=== PATIENT | female | born 1955 | race Caucasian/White ===

== ENCOUNTER 2019-05-29 09:12 | Day surgery (SDC) | payer OTHER ==
[~2019-05-29] VITALS: Ht 167.6 cm; Wt 113.8 kg
[~2019-05-29 09:12] MED LIST: ALPR1 PO; CETI5 PO; FLUO10 PO; MEDR5 PO; TESTOSTERONE TOP; TRIHYD253A PO
--- NOTE | 2019-05-29 09:40 | NUR ---
History, Chart, Medications and Allergies reviewed before start of procedure. Lungs clear T/O to Auscultation. Patient confirms NPO status and agrees with scheduled surgery. Pre-Op teaching done. Pt verbalizes understanding. Patient reports completing Chlorhexadine shower X2 prior to admission to hospital.
--- NOTE | 2019-05-29 10:09 | NUR ---
PT AMB TO BATHROOM AND BACK WITHOUT DIFFCULTY.
--- NOTE | 2019-05-29 18:52 | NUR ---
SUMMARY DENIES ANY PAIN AFTER MEDICATED WITH DILAUDID, OOB TO AMBULATE TODAY W/ PH. TX, TOLERATED WELL,CURRENTLY ON RECLINER, STATES SHE IS COMFORTABLE,DSG C/D/I, POLAR PACK IN PLACE, VSS, NO ACUTE CHANGES THIS SHIFT.
[2019-05-30 05:02] LABS: BASOPHILS ABSOLUTE AUTO 0.05 K/mm3 (0.00-0.23); BASOPHILS PERCENT AUTO 1 % (0-2); EOSINOPHILS ABSOLUTE AUTO 0.21 K/mm3 (0.00-0.68); EOSINOPHILS PERCENT AUTO 2 % (0-6); Hematocrit 40.4 % (33.0-51.0); IMMATURE GRAN ABSOLUTE AUTO 0.07 K/mm3 (0.00-0.10); IMMATURE GRAN PERCENT AUTO 1 % (0-1); LYMPHOCYTES ABSOLUTE AUTO 1.13 K/mm3 (0.84-5.20); LYMPHOCYTES PERCENT AUTO 10 % (21-46); MONOCYTES ABSOLUTE AUTO 1.57 K/mm3 (0.16-1.47); MONOCYTES PERCENT AUTO 14 % (4-13); Mean Corpuscular HGB 29.2 pg (26.0-34.0); Mean Corpuscular HGB Conc 32.2 g/dL (31.5-36.5); Mean Corpuscular Volume 91 fL (80-100); Mean Platelet Volume 9.9 fL (9.1-12.4); NEUTROPHILS ABSOLUTE AUTO 8.04 K/mm3 (1.96-9.15); NEUTROPHILS PERCENT AUTO 73 % (41-73); Platelet Count 240 K/mm3 (150-400); RDW Coefficient Variation 12.7 % (11.7-14.2); Red Blood Cell Count 4.45 M/mm3 (3.80-5.20); White Blood Cell Count 11.07 K/mm3 (4.00-11.30)
[2019-05-30 05:22] LABS: Anion Gap 7 mmol/L (6-16); Blood Urea Nitrogen 26 mg/dL (8-24); Bun/Creatinine Ratio 33.4 (12.0-20.0); CO2, Blood 29 mmol/L (21-32); Calcium, Blood 8.4 mg/dL (8.5-10.1); Chloride, Blood 101 mmol/L (98-108); Creatinine, Blood 0.78 mg/dL (0.40-1.00); Glomerular Filtration Rate >60 (60-); Glucose, Blood 100 mg/dL (70-99); Magnesium, Blood 1.7 mg/dL (1.6-2.4); Sodium, Blood 137 mmol/L (136-145)
--- NOTE | 2019-05-30 05:52 | NUR ---
SUMMARY POD #1 L TKA PT DID WELL THROUGH THE NIGHT. SHE IS TOLERATING PO INTAKE. AMBULATING TO THE BATHROOM 1 ASSIST USING FWW, GAIT BELT AND 1 ASSIST WITH NO PROBLEMS. PAIN MANAGED WITH SCHEDULED TYLENOL/TORADOL AND 2 OXYCODONE PER EMAR. DRSG REMAINS C/D/I, CIRC WNL, POLAR PACK/SCD'S IN PLACE. FAMILY FRIEND IS AT THE BEDSIDE. PT HAS NOT SLEPT WELL BUT REMAINS IN GOOD SPIRITS. WCTM, CALL LIGHT IN REACH.
[2019-05-30] MEDS ORDERED: ENOX40I INJ (09:33)
[2019-05-30] MEDS ORDERED: PROM25 PO (09:34)
[2019-05-30] MEDS ORDERED: OXYC5 PO (09:34)
--- NOTE | 2019-05-30 13:20 | NUR ---
05/30/19 1320 Annette Duran VERIFICATIONS: EDIT IMPLANTS.
--- NOTE | 2019-05-30 13:31 | NUR ---
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 PT REP HAVING ALL SCRIPTS FILLED PREVIOUSLY: 2 ABX, LOVENOX, OXY; FAXED PHENERGAN TO [facility]. DISCHARGE INSTRUCTIONS PROVIDED. PT REP UNDERSTANDING THOSE INSTRUCTIONS INCLUDING AQUACEL DRESSING CHANGES SUN/WED UNTIL FU WITH SURGEON IN 2 WKS, OK TO SHOWER, NO TUB BATH/JACUZZI/RIVER, NO DRIVING UNTIL RELEASED BY SURGEON, WHEN TO CALL SURGEON, HOW TO GIVE LOVENOX TO HERSELF/OR FAMILY MEMBER PROVIDE. IV DC'D.
== END 2019-05-30 13:18 | disposition home or self-care (01) ==
LOC: ORSCMMR 09:12 → ORD 10:30 → SURS 14:19 → ORSCMMR 05-30 13:18
PROVIDERS: Orthopaedic Surgery
PROC: 8E0YXBZ Computer Assisted Procedure of Lower Extremity (ICD-10-PCS; principal; 2019-05-29 10:30)
PROC: 0SRD0J9 Replacement of Left Knee Joint with Synthetic Substitute, Cemented, Open Approach (ICD-10-PCS; principal; 2019-05-29 10:30)
DX: M17.12 Unilateral primary osteoarthritis, left knee (principal); E66.01 Morbid (severe) obesity due to excess calories; Z68.41 Body mass index [BMI] 40.0-44.9, adult; E03.9 Hypothyroidism, unspecified; F32.9 Major depressive disorder, single episode, unspecified; Z79.899 Other long term (current) drug therapy
CPT/HCPCS: 36415; 73560-LT; 80048; 83735; 85025; 88300; 97110; 97116; 97162; 97530; C1713; C1776; J0171; J0690; J0735; J1170; J1650; J1885; J2250; J2405; J2704; J2795; J3010; J7120

== ENCOUNTER 2019-06-11 14:25 | Inpatient (IN) | payer OTHER ==
[~2019-06-11] VITALS: Ht 167.6 cm; Wt 121.6 kg
[~2019-06-11 14:25] MED LIST changes: +ENOX40I INJ; +OXYC5 PO; +PROM25 PO
[2019-06-11 14:45] LABS: Calcium, Ionized (POC) 1.09 mmol/L (1.10-1.46); Chloride (POC) 103 mmol/L (98-108); Creatinine (POC) 0.6 mg/dL (0.6-1.0); Glucose (ISTAT POC) 123 mg/dL (70-99); Hemoglobin (POC) 7.8 g/dL (12.0-16.0); Potassium (POC) 3.9 mmol/L (3.5-5.5); Sodium (POC) 137 mmol/L (135-148); Total CO2 (POC) 24 mmol/L (21-32)
[2019-06-11 14:59] LABS: BASOPHILS ABSOLUTE AUTO 0.09 K/mm3 (0.00-0.23); BASOPHILS PERCENT AUTO 1 % (0-2); EOSINOPHILS ABSOLUTE AUTO 0.29 K/mm3 (0.00-0.68); EOSINOPHILS PERCENT AUTO 2 % (0-6); Hematocrit 26.6 % (33.0-51.0); Hemoglobin 8.5 g/dL (11.5-16.0); IMMATURE GRAN ABSOLUTE AUTO 0.43 K/mm3 (0.00-0.10); IMMATURE GRAN PERCENT AUTO 3 % (0-1); LYMPHOCYTES ABSOLUTE AUTO 1.78 K/mm3 (0.84-5.20); LYMPHOCYTES PERCENT AUTO 13 % (21-46); MONOCYTES ABSOLUTE AUTO 0.88 K/mm3 (0.16-1.47); MONOCYTES PERCENT AUTO 6 % (4-13); Mean Corpuscular HGB 30.2 pg (26.0-34.0); Mean Platelet Volume 9.4 fL (9.1-12.4); NEUTROPHILS ABSOLUTE AUTO 10.27 K/mm3 (1.96-9.15); NEUTROPHILS PERCENT AUTO 75 % (41-73); NRBC ABSOLUTE 0.02 K/mm3 (0.00-0.02); NRBC Auto 0.1 /100 WBC (0.0-0.2); Platelet Count 406 K/mm3 (150-400); RDW Coefficient Variation 13.4 % (11.7-14.2); RDW Standard Deviation 46.3 fL (35.1-46.3); Red Blood Cell Count 2.81 M/mm3 (3.80-5.20); White Blood Cell Count 13.74 K/mm3 (4.00-11.30)
[2019-06-11 15:10] LABS: Mean Corpuscular Volume 95 fL (80-100)
[2019-06-11 15:26] LABS: Alanine Aminotransfer (ALT/SGP 15 U/L (12-78); Albumin, Blood 2.5 g/dL (3.4-5.0); Albumin/Globulin Ratio 0.9 (0.8-1.8); Alk Phos 64 U/L (50-136); Anion Gap 8 mmol/L (6-16); Aspartate Aminotrans (AST/SGOT 14 U/L (12-37); Bilirubin, Total 0.2 mg/dL (0.1-1.0); Blood Urea Nitrogen 39 mg/dL (8-24); Bun/Creatinine Ratio 86.9 (12.0-20.0); CO2, Blood 24 mmol/L (21-32); Calcium, Blood 8.1 mg/dL (8.5-10.1); Chloride, Blood 109 mmol/L (98-108); Creatinine, Blood 0.45 mg/dL (0.40-1.00); Globulin, Blood 2.8 g/dL (2.2-4.0); Glomerular Filtration Rate >60 (60-); Glucose, Blood 123 mg/dL (70-99); Sodium, Blood 141 mmol/L (136-145); Total Protein, Blood 5.3 g/dL (6.4-8.2)
[2019-06-11] MEDS ORDERED: Estradiol1 MG PO (17:08)
[2019-06-11] MEDS ORDERED: GABA300 PO (17:08)
[2019-06-11] MEDS ORDERED: PROG100 PO (17:09)
[2019-06-11] MEDS ORDERED: OMEPRAZOLE MAGN20 MG PO (17:09)
[2019-06-11] MEDS ORDERED: MONT10T PO (17:09)
[2019-06-11] MEDS ORDERED: LEVSOD50 PO (17:09)
[2019-06-11] MEDS ORDERED: Dyazide 37.5-21 EACH PO (17:10)
[2019-06-11] MEDS ORDERED: Hydrocodone-Ap1 EA23 PO (17:12)
[2019-06-11 17:19] LABS: International Normalized Ratio 0.97; Prothrombin Time Results 10.3 Sec (9.7-11.5)
[2019-06-11] MEDS ORDERED: Prozac40 MG PO (18:00)
--- NOTE | 2019-06-11 19:00 | NUR ---
ADMIT/ASSUMED CARE PT WAS ADMITTED TO PCU 7 APPROXIMATELY 1855 BY DAY SHIFT RN. ASSUMED CARE OF PATIENT AT THIS TIME. PT IS AWAKE AND ALERT. ORIENTED X 3 AND CALM AND COOPERATIVE. REPOSITIONS SELF IN BED. DENIES C/O PAIN OR DISCOMFORT AT THIS TIME. RIGHT KNEE DRSG D/I. TELEMETRY SHOWS NSR. RA. RESPIRATIONS EVEN AND UNLABORED. PROTONIX INFUSING @ 8MG/HR (10CC/HR) PER ORDER. SEE ADMIT ASSESSMENT FOR FULL ASSESSMENT.
[2019-06-11 19:25] LABS: Hematocrit 25.7 % (33.0-51.0); Hemoglobin 8.2 g/dL (11.5-16.0)
--- NOTE | 2019-06-11 21:00 | NUR ---
BOWEL MOVEMENT UP TO BSC WITH TWO PERSON ASSIST. PT C/O DIZZINESS WHEN FIRST GETTING UP. GAIT IS WEAK, BUT STEADY. PASSED SMALL AMOUNT OF LOOSE DARK MAROON STOOL. ALSO URINATED.
[2019-06-11 23:36] LABS: Hematocrit 23.3 % (33.0-51.0); Hemoglobin 7.3 g/dL (11.5-16.0)
[2019-06-12 05:34] LABS: Hematocrit 22.8 % (33.0-51.0); Hemoglobin 7.2 g/dL (11.5-16.0); Mean Corpuscular HGB 29.4 pg (26.0-34.0); Mean Corpuscular HGB Conc 31.6 g/dL (31.5-36.5); Mean Corpuscular Volume 93 fL (80-100); Mean Platelet Volume 9.1 fL (9.1-12.4); NRBC ABSOLUTE 0.03 K/mm3 (0.00-0.02); NRBC Auto 0.2 /100 WBC (0.0-0.2); Platelet Count 336 K/mm3 (150-400); RDW Coefficient Variation 13.8 % (11.7-14.2); RDW Standard Deviation 46.1 fL (35.1-46.3); Red Blood Cell Count 2.45 M/mm3 (3.80-5.20); White Blood Cell Count 13.56 K/mm3 (4.00-11.30)
[2019-06-12 05:51] LABS: Anion Gap 7 mmol/L (6-16); Blood Urea Nitrogen 25 mg/dL (8-24); Bun/Creatinine Ratio 50.6 (12.0-20.0); CO2, Blood 26 mmol/L (21-32); Calcium, Blood 7.6 mg/dL (8.5-10.1); Chloride, Blood 111 mmol/L (98-108); Creatinine, Blood 0.49 mg/dL (0.40-1.00); Glomerular Filtration Rate >60 (60-); Glucose, Blood 88 mg/dL (70-99); Potassium, Blood 3.6 mmol/L (3.5-5.5); Sodium, Blood 144 mmol/L (136-145)
--- NOTE | 2019-06-12 06:24 | NUR ---
SHIFT SUMMARY NO ACUTE CHANGES. SLEPT WHEN UNDISTURBED. ROUSES EASILY TO STIMULI. MEDICATED WITH HYDROCODONE PO X 1 FOR C/O 3/10 LEFT KNEE PAIN WITH GOOD RELIEF. ALSO MEDICATED WITH TYLENOL 650MG PO X 1 FOR C/O 2/10 HEADACHE. DENIES NAUSEA. PASSED ONE LOOSE DARK MAROON STOOL AT BEGINNING OF SHIFT. NO FURTHER STOOL. VSS. RESPIRATIONS EVEN AND UNLABORED. PROTONIX GTT CONTINUES PER ORDER. NS INFUSING @ 150CC/HR PER ORDER. TENTATIVE PLAN FOR UPPER ENDOSCOPY PER DR. YUEN TODAY AT NOON. WILL REPORT TO DAY SHIFT RN WHEN AVAILABLE.
--- NOTE | 2019-06-12 08:19 | NUR ---
NURSING PCU DAYSHIFT: Assumed care of pt at approx 0700. A/O, pleasant, cooperative w/care. C/O 3-01/30 pain in L knee r/t recent sx, treating w/meds as ordered and repositioning, dressing in place which is CKI, mild swelling noted surrounding surgery site. Mild general weakness noted though able to ambulate w/SBA. Tele in place, NSR, no c/o CP/pressure, SBP 130's. L/S cta t/o, O2 sat 99% on RA, denies dyspnea, no noted cough. Abd SNT, BT+, voiding w/o difficuty per pt. PIV x1, LR infusing at 150cc/hr, protonix gtt at 10cc/hr. No s/s of acute distress at this time. New d/o received, pt to received 1 unit PRBC's, plan for EGD at approx 1200. Pt denies any current needs or questions regarding plan of care. Call light in reach, cont to monitor for any changes.
[2019-06-12 12:02] LABS: Hematocrit 26.2 % (33.0-51.0); Hemoglobin 8.1 g/dL (11.5-16.0)
--- NOTE | 2019-06-12 12:21 | NUR ---
INTO [facility] VIA [facility]. PT 2 WEEKS POST TOTAL KNEE REPLACEMENT ON LEFT.DRESSING C/D/I TO LEFT KNEE. PT REPORTS 3/10 LEFT KNEE PAIN. TRANSFERED TO [facility] USING WALKER AND STANDBY ASSIST.PT APPEARS PALE-DENIES NAUSEA AT THIS TIME.HISTORY AND ALLERGIES REVIEWED. LUNGS CLEAR-SATS>90% ON RA. NPO STATUS CONFIRMED.
--- NOTE | 2019-06-12 12:57 | NUR ---
06/12/19 Richard Mariscal PATIENT DETERMINED TO BE ASA APPROPRIATE FOR PROPOFOL SEDATION PRIOR TO START OF PROCEDURE BY DR. Valente Quintero Placed3-LEAD EKG REVIEWED WITH PHYSICIAN PRIOR TO START OF PROCEDURE.Patient to ENDO 1History, Chart, Medications and Allergies reviewed before start of procedure.MONITOR INTACT WITH CONTINUOUS PULSE OXIMETRY AND INTERMITTENT BP.O2 VIA N/C INTACT THROUGHOUT SEDATION/PROCEDURE.
[2019-06-12 17:49] LABS: Hematocrit 26.7 % (33.0-51.0); Hemoglobin 8.5 g/dL (11.5-16.0)
--- NOTE | 2019-06-12 18:20 | NUR ---
NURSING PCU DAYSHIFT SUMMARY: Pt has continued to do well t/o the shift. No cardiac or respiratory changes noted. 1 unit PRBCs administered as ordered, tolerated well. EGD completed, GI at bedside to discuss results w/pt, plan for colonoscopy tomorrow, bowel prep started. Pt continues to have maroon colored stools which have darkened t/o shift. Pt temp was noted to be 99.0-99.9 t/o much of shift. L knee sx site remains stable w/no s/s of infection. Ortho at bedside for staple removal and dressing change, no new orders received at that time. Family remains at bedside. Plan of care discussed, questions addressed. No s/s of acute distress, rpt provided to GREGG RN.
[2019-06-13 00:32] LABS: Adenovirus F 40/41 Not Detected (NOT DETECT); Astrovirus Not Detected (NOT DETECT); Campylobacter Sp Not Detected (NOT DETECT); Cryptosporidium Not Detected (NOT DETECT); Cyclospora Cayetanensis Not Detected (NOT DETECT); E. Coli O157 Not Detected (NOT DETECT); Entamoeba Histolytica Not Detected (NOT DETECT); Enteroaggregative E. coli-EAEC Not Detected (NOT DETECT); Enteropathogenic E. coli-EPEC Not Detected (NOT DETECT); Enterotoxigenic E. coli-ETEC Not Detected (NOT DETECT); Giardia Lamblia Not Detected (NOT DETECT); Norovirus GI/GII Not Detected (NOT DETECT); Plesiomonas Shigelloides Not Detected (NOT DETECT); Rotavirus A Not Detected (NOT DETECT); Salmonella Sp Not Detected (NOT DETECT); Sapovirus Not Detected (NOT DETECT); Shiga Toxin-prod E. coli-STEC Not Detected (NOT DETECT); Shigella/Enteroin E. coli-EIEC Not Detected (NOT DETECT); Vibrio Cholerae Not Detected (NOT DETECT); Vibrio Sp Not Detected (NOT DETECT); Yersinia Enterocolitica Not Detected (NOT DETECT)
[2019-06-13 04:13] LABS: Hematocrit 23.4 % (33.0-51.0); Hemoglobin 7.5 g/dL (11.5-16.0); Mean Corpuscular HGB 30.6 pg (26.0-34.0); Mean Corpuscular HGB Conc 32.1 g/dL (31.5-36.5); Mean Platelet Volume 9.2 fL (9.1-12.4); NRBC ABSOLUTE 0.03 K/mm3 (0.00-0.02); NRBC Auto 0.3 /100 WBC (0.0-0.2); Platelet Count 311 K/mm3 (150-400); RDW Coefficient Variation 14.4 % (11.7-14.2); RDW Standard Deviation 47.9 fL (35.1-46.3); Red Blood Cell Count 2.45 M/mm3 (3.80-5.20); White Blood Cell Count 11.23 K/mm3 (4.00-11.30)
[2019-06-13 04:15] LABS: Mean Corpuscular Volume 96 fL (80-100)
[2019-06-13 04:37] LABS: Anion Gap 7 mmol/L (6-16); Blood Urea Nitrogen 12 mg/dL (8-24); Bun/Creatinine Ratio 23.1 (12.0-20.0); CO2, Blood 26 mmol/L (21-32); Calcium, Blood 7.8 mg/dL (8.5-10.1); Chloride, Blood 115 mmol/L (98-108); Creatinine, Blood 0.52 mg/dL (0.40-1.00); Glomerular Filtration Rate >60 (60-); Glucose, Blood 85 mg/dL (70-99); Potassium, Blood 3.2 mmol/L (3.5-5.5); Sodium, Blood 148 mmol/L (136-145)
--- NOTE | 2019-06-13 05:01 | NUR ---
JOVON YUEN CALLED REGARDING H&H. ORDERS PLACED TO [facility] IN 4HRS (0900). ORDERS PLACED IN EMAR.
--- NOTE | 2019-06-13 05:42 | NUR ---
END OF SHIFT SUMMARY NO ACUTE CHANGES THIS SHIFT. PT AX0. RESPONDING APPROPRIATELY. FINISHED BOWEL PREP. HAS HAD MULTIPLE BM'S. T/O SHIFT BM'S HAVE PROGRESSED FROM BLACK WATERY WITH SOME MAROON TO DARK BROWN LIQUID. PROVIDER CALLED REGARDING HGB 7.5. ORDERS TO [facility] H&H @0900. PT HAS BEEN NPO MIDNIGHT IN ANTICIPATION OF COLONOSCOPY TODAY. PT CONTINUES WITH LOW GRADE FEVER, MEDICATED PER EMAR. RECENT L KNEE SURGICAL SITE DRESSING C/D/I. NO REDNESS/WARMTH NOTED SURROUNDING SITE. PT HAS BEEN VERY COOPERATIVE AND PLEASANT THIS SHIFT. SOUMYA FINKONTINUE TO MONITOR PT UNTIL SHIFT CHANGE.
--- NOTE | 2019-06-13 08:00 | NUR ---
NURSING PCU DAYSHIFT: Assumed care of pt at approx 0700. A/O, pleasant, cooperative w/care. Mild anxiety noted this a.m. Denies any pain/discomfort at rest. Skin is fairly intact though small abrasion noted to coccyx which was present prior to admit per pt, L knee incision from resent sx, dressing in place. Ambulates with one staff assist. Tele in place, NSR, no c/o CP/pressure, BP stable. L/S fairly cta t/o, O2 sat stable on RA, denies dypsnea, no noted cough. Abd SNT, BT hyperactive, voiding w/o difficulty. PIV x2, s/l at initial assessment. No s/s of acute distress at this time. Plan for colonoscopy this afternoon, pt denies any questions/needs at this time. Call light in reach, awaiting rounding from PMD, cont to monitor for any changes.
[2019-06-13 09:43] LABS: Hemoglobin 8.2 g/dL (11.5-16.0)
--- NOTE | 2019-06-13 14:18 | NUR ---
06/13/19 1418 Allyson Trinh PATIENT DETERMINED TO BE ASA APPROPRIATE FOR PROPOFOL SEDATION PRIOR TO START OF PROCEDURE BY DR. YUEN. DISCUSSED PATIENT'S HABITUS, GOOD AIRWAY, GOOD NECK FLEXION, PATIENT TOLERATED PREVIOUS ENDOSCOPY WITH PROPOFOL WELL, WILL PROCEED WITH PROPOFOL SEDATION. 3-LEAD EKG REVIEWED WITH PHYSICIAN PRIOR TO START OF PROCEDURE. PATIENT CONFIRMS NPO STATUS AND AGREES WITH SCHEDULED PROCEDURE. History, Chart, Medications and Allergies reviewed before start of procedure. MONITOR INTACT WITH CONTINUOUS PULSE OXIMETRY AND INTERMITTENT BP. O2 VIA N/C INTACT THROUGHOUT SEDATION/PROCEDURE, 4L NC. NON-REBREATHER PLACED FOR INITIAL PERIOD OF DESATURATION, PATIENT RECOVERED WITH SUPPORT OF CHIN LIFT AND MASK, MAINTAINING 100% SINCE.
[2019-06-13 15:24] LABS: Hematocrit 26.8 % (33.0-51.0); Hemoglobin 8.5 g/dL (11.5-16.0)
--- NOTE | 2019-06-13 17:28 | NUR ---
NURSING PCU DAYSHIFT SUMMARY: No significant changes noted t/o shift, colonoscopy completed as scheduled. Diet upgraded to regular, toelrating well. Several friends/family at bedside t/o shift. Pt appears to be in good spirits and is anticipating possible discharge home if labs remain stable. No s/s of acute distress at this time, call light in reach, cont to monitor until rpt is given to NOC RN.
[2019-06-14 03:50] LABS: Hemoglobin 7.4 g/dL (11.5-16.0); Mean Corpuscular HGB 30.1 pg (26.0-34.0); Mean Corpuscular HGB Conc 30.8 g/dL (31.5-36.5); Mean Corpuscular Volume 98 fL (80-100); Mean Platelet Volume 9.3 fL (9.1-12.4); NRBC ABSOLUTE 0.04 K/mm3 (0.00-0.02); NRBC Auto 0.4 /100 WBC (0.0-0.2); Platelet Count 295 K/mm3 (150-400); RDW Coefficient Variation 14.8 % (11.7-14.2); Red Blood Cell Count 2.46 M/mm3 (3.80-5.20); White Blood Cell Count 9.58 K/mm3 (4.00-11.30)
[2019-06-14 04:07] LABS: Anion Gap 8 mmol/L (6-16); Blood Urea Nitrogen 16 mg/dL (8-24); CO2, Blood 26 mmol/L (21-32); Calcium, Blood 7.8 mg/dL (8.5-10.1); Chloride, Blood 112 mmol/L (98-108); Creatinine, Blood 0.62 mg/dL (0.40-1.00); Glomerular Filtration Rate >60 (60-); Glucose, Blood 95 mg/dL (70-99); Potassium, Blood 3.5 mmol/L (3.5-5.5); Sodium, Blood 146 mmol/L (136-145)
--- NOTE | 2019-06-14 05:20 | NUR ---
PATIENT NOT ABLE TO SLEEP FOR MOST OF THE NIGHT. STATES THAT SOMETIMES HAPPENS AT HOME. PATIENT GIVEN SNACK, DENIED FURTHER NEEDS. PATIENT ONLY REQUIRING PAIN MEDICATION AT THE BEGINNING OF THE NIGHT. PATIENT HAD SLIGHT TEMP AT THE BEGINNING OF THE NIGHT THAT RESOLVED. PATIENT HAS BEEN TRENDING WITH A TEMP OF 99 TO 100 SINCE ADMISSION. VITALS STABLE.
[2019-06-14 12:11] LABS: Hematocrit 24.4 % (33.0-51.0); Hemoglobin 7.6 g/dL (11.5-16.0)
--- NOTE | 2019-06-14 13:40 | NUR ---
PT STABLE FOR DISCHARGE. IV REMOVED. DISCHARGE INSTRUCTIONS REVIEWED WITH PT AND FAMILY. PT AND FAMILY VERBALIZE UNDERSTANDING AND DENY QUESTIONS. PT DISCHARGED VIA WHEELCHAIR TO WAITING CAR WITH PERSONAL BELONGINGS.
== END 2019-06-14 13:54 | disposition home or self-care (01) | DRG 378 ==
LOC: ER 14:25 → PCU 17:34
PROVIDERS: Emergency Medicine; Internal Medicine Gastroenterology; Physician Assistant; ADMIT Internal Medicine
PROC: 0DJ08ZZ Inspection of Upper Intestinal Tract, Via Natural or Artificial Opening Endoscopic (ICD-10-PCS; 2019-06-12)
PROC: 30233N1 Transfusion of Nonautologous Red Blood Cells into Peripheral Vein, Percutaneous Approach (ICD-10-PCS; principal; 2019-06-12 13:00)
PROC: 0DJD8ZZ Inspection of Lower Intestinal Tract, Via Natural or Artificial Opening Endoscopic (ICD-10-PCS; 2019-06-13)
DX: K25.4 Chronic or unspecified gastric ulcer with hemorrhage (principal); D62 Acute posthemorrhagic anemia; E87.0 Hyperosmolality and hypernatremia; Z68.41 Body mass index [BMI] 40.0-44.9, adult; E66.01 Morbid (severe) obesity due to excess calories; K29.81 Duodenitis with bleeding; F41.8 Other specified anxiety disorders; E03.9 Hypothyroidism, unspecified; D72.829 Elevated white blood cell count, unspecified; K21.9 Gastro-esophageal reflux disease without esophagitis; J45.909 Unspecified asthma, uncomplicated; I10 Essential (primary) hypertension; E87.6 Hypokalemia; M17.12 Unilateral primary osteoarthritis, left knee; T45.515A Adverse effect of anticoagulants, initial encounter; Y92.9 Unspecified place or not applicable
CPT/HCPCS: 0097U; 36415; 36430; 74177; 80047; 80048; 80053; 83993; 84484; 85014; 85018; 85025; 85027; 85610; 85730; 86850; 86900; 86901; 86923; 93005; 93010; 96365-59; 97110; 97116; 97161; 99285-25; A9270; A9270-GY; C9113; J2250; J2405; J2704; J3480; J7030; J7120; P9016; Q9967

== ENCOUNTER 2019-08-27 09:19 | Day surgery (SDC) | payer OTHER ==
[~2019-08-27] VITALS: Ht 167.6 cm; Wt 113.2 kg
[~2019-08-27 09:19] MED LIST changes: +Dyazide 37.5-21 EACH PO; +ESTR2 PO; +Estradiol1 MG PO; +FERSU300 PO; +GABA300 PO; +GABA300T24 PO; +Hydrocodone-Ap1 EA23 PO; +K-Dur20 MEQ PO; +LEVSOD50 PO; +MONT10T PO; +OMEPRAZOLE MAGN20 MG PO; +OMEPRAZOLE20 MG PO; +PROG100 PO; +Prozac40 MG PO; +TESTOSTERONE CREAM
[2019-08-29] MEDS ORDERED: Dyazide 37.5-21 EACH PO (11:10)
[2019-08-29] MEDS ORDERED: Prozac40 MG PO (11:14)
[2019-08-29] MEDS ORDERED: ESTRADIOL PO (11:15)
[2019-08-29] MEDS ORDERED: MONT10T PO (11:15)
[2019-08-29] MEDS ORDERED: PROG100 PO (11:16)
[2019-08-29] MEDS ORDERED: TESTOSTERONE CREAM TOP (11:18)
[2019-08-29] MEDS ORDERED: OMEPRAZOLE20 MG PO (11:19)
[2019-08-29] MEDS ORDERED: LEVSOD50 PO (11:19)
[2019-08-29] MEDS ORDERED: FERSU300 PO (11:20)
[2019-08-29] MEDS ORDERED: POTA10T PO (11:20)
[2019-08-29] MEDS ORDERED: GABA300 PO (11:20)
== END 2019-08-27 11:19 | disposition home or self-care (01) ==
LOC: ORSCSDS 09:19
PROVIDERS: Internal Medicine Gastroenterology
PROC: 0DB68ZX Excision of Stomach, Via Natural or Artificial Opening Endoscopic, Diagnostic (ICD-10-PCS; principal; 2019-08-27 10:30)
DX: Z87.11 Personal history of peptic ulcer disease (principal); F41.8 Other specified anxiety disorders; E03.9 Hypothyroidism, unspecified; D64.9 Anemia, unspecified; E78.5 Hyperlipidemia, unspecified; I10 Essential (primary) hypertension; K21.9 Gastro-esophageal reflux disease without esophagitis; Z98.84 Bariatric surgery status; Z79.899 Other long term (current) drug therapy
CPT/HCPCS: 88305; 88342; J2704; J7120

== ENCOUNTER 2019-09-04 08:33 | Day surgery (SDC) | payer OTHER ==
[~2019-09-04] VITALS: Ht 167.6 cm; Wt 115.8 kg
[~2019-09-04 08:33] MED LIST changes: +ESTRADIOL PO; +POTA10T PO; +TESTOSTERONE CREAM TOP
--- NOTE | 2019-09-04 10:26 | NUR ---
Ambulatory in Day Surgery Surgical site prepped with 2% Chlorhexidine cloth wipe. Patient confirms NPO status and agrees with scheduled surgery. History, Chart, Medications and Allergies reviewed before start of procedure.Pre-Op teaching done. Pt verbalizes understanding. Patient reports completing Chlorhexadine shower X2 prior to admission to hospital.
--- NOTE | 2019-09-04 19:19 | NUR ---
SHIFT SUMMARY PT'S PAIN WELL MANAGED, TOLERATING DIET, WORKED WITH THERAPY, VOIDED.
[2019-09-05 04:10] LABS: BASOPHILS ABSOLUTE AUTO 0.02 K/mm3 (0.00-0.23); BASOPHILS PERCENT AUTO 0 % (0-2); EOSINOPHILS PERCENT AUTO 0 % (0-6); Hematocrit 35.9 % (33.0-51.0); Hemoglobin 10.8 g/dL (11.5-16.0); IMMATURE GRAN ABSOLUTE AUTO 0.08 K/mm3 (0.00-0.10); IMMATURE GRAN PERCENT AUTO 1 % (0-1); LYMPHOCYTES ABSOLUTE AUTO 0.88 K/mm3 (0.84-5.20); LYMPHOCYTES PERCENT AUTO 6 % (21-46); MONOCYTES PERCENT AUTO 11 % (4-13); Mean Corpuscular HGB 24.9 pg (26.0-34.0); Mean Corpuscular HGB Conc 30.1 g/dL (31.5-36.5); Mean Corpuscular Volume 83 fL (80-100); Mean Platelet Volume 9.7 fL (9.1-12.4); NEUTROPHILS ABSOLUTE AUTO 11.26 K/mm3 (1.96-9.15); NEUTROPHILS PERCENT AUTO 82 % (41-73); Platelet Count 281 K/mm3 (150-400); RDW Coefficient Variation 16.3 % (11.7-14.2); RDW Standard Deviation 49.6 fL (35.1-46.3); Red Blood Cell Count 4.34 M/mm3 (3.80-5.20); White Blood Cell Count 13.74 K/mm3 (4.00-11.30)
[2019-09-05 04:28] LABS: Anion Gap 6 mmol/L (6-16); Blood Urea Nitrogen 12 mg/dL (8-24); Bun/Creatinine Ratio 20.2 (12.0-20.0); CO2, Blood 27 mmol/L (21-32); Calcium, Blood 8.5 mg/dL (8.5-10.1); Chloride, Blood 106 mmol/L (98-108); Creatinine, Blood 0.59 mg/dL (0.40-1.00); Glomerular Filtration Rate >60 (60-); Glucose, Blood 123 mg/dL (70-99); Magnesium, Blood 1.8 mg/dL (1.6-2.4); Potassium, Blood 3.4 mmol/L (3.5-5.5); Sodium, Blood 139 mmol/L (136-145)
--- NOTE | 2019-09-05 04:51 | NUR ---
SHIFT SUMMARY: QING IS POD1 FOR A RIGHT TKA. SHE HAS INTACT SENSATION THROUGHOUT ALL EXTREMITIES. SHE AMBULATES TO THE BATHROOM WITH A 1 PERSON STANDBY ASSIST. HER PAIN IS WELL CONTROLLED WITH THE OXYCODONE, APAP AND TORADOL. SCDs, JEFF HOSE AND POLAR PACK IN PLACE. SHE IS NOT ON CHEMICAL PROPHYLAXIS DUE TO A GI BLEED AFTER HER LEFT TOTAL KNEE. SHE IS TOLERATING PO INTAKE WELL. ORA, DENIES ANY CHEST PAIN OR SHORTNESS OF BREATH. SHE IS ABLE TO MAKE HER NEEDS KNOWN. SHE IS LYING IN BED WITH HER CALL LIGHT IN REACH. IV TO RIGHT FOREARM PATENT, SALINE LOCKED. VSS. NO ACUTE CHANGES THIS SHIFT.
[2019-09-05] MEDS ORDERED: OXYC5 PO (08:52)
[2019-09-05] MEDS ORDERED: PROM25 PO (08:52)
[2019-09-05] MEDS ORDERED: Bactrim Ds Tab1 EACH PO (08:53)
--- NOTE | 2019-09-05 11:15 | NUR ---
PATIENT D/C'D HOME WITH DAUGHTER AT THIS TIME. PATIENT STATES SHE HAD L KNEE DONE IN MAY AND HAD CLEAR UNDERSTANDING OF MEDS, WOUND CARE, ACTIVITY, F/U APPT, ETC. PATIENT STATES PAIN WELL CONTROLLED WITH PO MEDS. VOIDING. TOLERATING PO. NO ACUTE CHANGES OR C/O AT THIS TIME.
== END 2019-09-05 12:03 | disposition home or self-care (01) ==
LOC: ORSCMMR 08:33 → ORD 10:45 → SURS 14:42 → ORSCMMR 09-05 12:03 → ORD 09-11 13:30
PROVIDERS: Orthopaedic Surgery
PROC: 0SRC0J9 Replacement of Right Knee Joint with Synthetic Substitute, Cemented, Open Approach (ICD-10-PCS; principal; 2019-09-04 10:45)
PROC: 8E0YXBZ Computer Assisted Procedure of Lower Extremity (ICD-10-PCS; principal; 2019-09-04 10:45)
DX: M17.11 Unilateral primary osteoarthritis, right knee (principal); I10 Essential (primary) hypertension; E03.9 Hypothyroidism, unspecified; K21.9 Gastro-esophageal reflux disease without esophagitis; E66.01 Morbid (severe) obesity due to excess calories; Z68.41 Body mass index [BMI] 40.0-44.9, adult; Z79.899 Other long term (current) drug therapy
CPT/HCPCS: 36415; 73560-RT; 80048; 83735; 85025; 86850; 86900; 86901; 88300; 97110; 97116; 97162; 97530; A9270-GY; C1713; C1776; J0171; J0690; J0735; J1100; J1170; J1885; J2250; J2405; J2704; J2710; J2795; J3010; J3370; J7120